=== PATIENT | male | born 1985 | race Caucasian/White ===

== ENCOUNTER → 2022-08-26 14:47 | Outpatient (BNVA) | payer BC, SELFPAY | PROVIDERS: PCP Internal Medicine; Visit Provider Nurse Practitioner Family ==

== ENCOUNTER → 2022-09-23 13:58 | Outpatient (REF) | payer BC, SELFPAY | LOC: HO.SL 13:58 | PROVIDERS: PCP Internal Medicine; Visit Provider Nurse Practitioner Family | DX: G47.33 Obstructive sleep apnea (adult) (pediatric) (principal); R40.0 Somnolence; R06.83 Snoring | CPT/HCPCS: 95806; 95811 ==

== ENCOUNTER → 2022-10-13 19:30 | Outpatient (REF) | payer BC, SELFPAY | LOC: HO.SL 19:30 | PROVIDERS: PCP Internal Medicine; Visit Provider Nurse Practitioner Family | DX: Z13.89 Encounter for screening for other disorder (principal) ==

== ENCOUNTER → 2022-10-13 21:18 | Outpatient (BNV) | payer BC, SELFPAY | PROVIDERS: PCP Internal Medicine; Visit Provider Psychiatry & Neurology Neurology | DX: G47.33 Obstructive sleep apnea (adult) (pediatric) (principal) | CPT/HCPCS: 95811 ==

== ENCOUNTER 2022-11-04 14:21 | Outpatient (AMB) | payer BC, SELFPAY ==
[2022-11-04 14:23] VITALS: BP 102/86; PULSE 109; O2SAT 98; BMI 38.6
--- NOTE | 2022-11-04 14:23 | MHC.OFFVIS ---
Intake Vital Signs 11/04/22 14:23 Height 5 ft 11 in Weight 276 lb 8 oz BMI 38.6 BP 102/86 Blood Pressure Location Lt brachial Position Sitting Pulse 109 H Pulse Source Pulse Oximeter Pulse Oximetry (%) 98 Oxygen Delivery Method Room Air Intake Visit Reasons: 2m follow up Sleep Apnea - Confirmed Intake Note: Pt presents as a 2 month f/u for sleep apnea. Photographer Motion Picture Required: No Allergies No Known Allergies Allergy (Verified 11/04/22 14:26) HPI HPI Comments History of Present Illness Details 37 y/o male patient presents for follow up of sleep study. The home sleep study result was significant for severe degree of sleep apnea. The AHI was 85/hr and oxygen shannan was 56%. Pt underwent urgent titration study, but it was unsuccessful. He was unable to tolerate CPAP or BiPAP due to nasal congestion and anxiety. APAP [id number] ordered, and he will belt picker CPAP next Wednesday. Pt states that his nasal congestion has been a little better, and also full face mask made him anxious. He start using medline pillow, claritin and nasal spray, and they help him sleep better now. [facility] Surgical History H/O wisdom tooth extraction Family History Maternal Grandfather Liver disease Social History (Updated 11/04/22 @ 14:27 by Ann Marie Garcia CMA) Alcohol intake: current Alcohol intake frequency: a few times a month Patient Tobacco Use Status: Never used Tobacco Review of Systems Const All systems reviewed & are unremarkable except as noted in HPI and below ENT Reports Normal hearing present Neuro Reports Normal hearing present Physical Exam Vital Signs: Last Vital Signs Pulse 109 H 11/04/22 14:23 BP 102/86 11/04/22 14:23 Pulse Ox 98 11/04/22 14:23 Oxygen Delivery Method Room Air 11/04/22 14:23 BMI result Body Mass Index 38.6 Const General: cooperative Nutritional Appearance: obese Orientation/consciousness: patient oriented x3 Neck Neck: Yes full ROM and Yes supple Resp Effort & Inspection: normal respiratory effort and able to speak in complete sentences Neuro General: patient oriented x3, gait normal and moves all extremities Cranial nerves: Yes Bilaterally intact EOM present, Yes Normal facial strength present, Yes Midline tongue present, Yes Symmetric palate elevation present, Yes Normal hearing present, Yes Ability to bilaterally rotate head present and Yes Ability to bilaterally elevate shoulders present Cognition (Neuro): normal cognition Gait exam (Neuro): Normal gait present Motor exam (neuro): 5/5 motor strength present throughout, Pronator motor function not present and no tremor noted Psych Appearance: grossly normal Mental Status: mental status grossly normal Speech and movement: Normal speech and movement present Affect: normal affect Attitude: cooperative Assessment & Plan Assessment & Plan (1) HAL (obstructive sleep apnea): Comment: Severe degree of sleep apnea. The AHI was 85/hr and oxygen shannan was 56% Code(s): G47.33 - Obstructive sleep apnea (adult) (pediatric) Plan Advised patient to start APAP [id number]. Advised patient to try different mask to fit well to him. Suggested to try Neti Pot to clear nasal congestion, and continue to use claritin and nasal spray. Stressed compliance, use CPAP nightly and more than 4 hours. Wt reduction advised. Coding Level of Care Code Est Pt Level 3 (94044) Diagnoses HAL (obstructive sleep apnea) G47.33
== END 2022-11-04 14:43 | disposition home or self-care (01) ==
PROVIDERS: Visit Provider Nurse Practitioner Family
DX: G47.33 Obstructive sleep apnea (adult) (pediatric) (principal)
CPT/HCPCS: 99213

== ENCOUNTER → 2022-11-04 14:21 | Outpatient (BNVA) | payer BC, SELFPAY | PROVIDERS: Visit Provider Nurse Practitioner Family | DX: R06.83 Snoring (principal); R40.0 Somnolence ==

== ENCOUNTER 2023-01-27 13:42 | Outpatient (AMB) | payer BC, SELFPAY ==
--- NOTE | 2023-01-27 14:07 | A.OFFVIS_ITS ---
Intake Vital Signs 01/27/23 14:08 Height 5 ft 11 in Weight 261 lb 2 oz BMI 36.4 BP 112/82 Blood Pressure Location Rt brachial Position Sitting Intake Visit Reasons: 3m follow up Sleep Apnea-Confirmed Intake Note: Patient presents for 3 month follow up sleep apnea. Patient states no issues today. Allergies No Known Allergies Allergy (Verified 01/27/23 14:11) HPI HPI Comments History of Present Illness Details 37 y/o male patient presents for follow up of HAL on CPAP. The home sleep study result was significant for severe degree of sleep apnea. The AHI was 85/hr and oxygen shannan was 56%. Pt underwent urgent titration study, but it was unsuccessful. He was unable to tolerate CPAP or BiPAP due to nasal congestion and anxiety. Pt started APAP [id number]. The CPAP compliance and therapy response (12/23/22-01/21/23) reviewed. The usage days 100% and the average usage hours 5 hours 30 min. The max pressure was 13.1 and the AHI was 7.5/hr. The apnea index was central 5 and obstructive 1.3/hr. He feels CPAP using helps him less tired, and is able to cut down caffeine in take. But he had worsening nasal congestion. [facility] Surgical History H/O wisdom tooth extraction Family History Maternal Grandfather Liver disease Alcohol intake: current Alcohol intake frequency: a few times a month Patient Tobacco Use Status: Never used Tobacco Review of Systems Const All systems reviewed & are unremarkable except as noted in HPI and below ENT Reports Normal hearing present Neuro Reports Normal hearing present Physical Exam Vital Signs: Last Vital Signs BP 112/82 01/27/23 14:08 BMI result Body Mass Index 36.4 Const General: cooperative Nutritional Appearance: obese Orientation/consciousness: patient oriented x3 Neck Neck: Yes full ROM and Yes supple Resp Effort & Inspection: normal respiratory effort and able to speak in complete sentences Neuro General: patient oriented x3, gait normal and moves all extremities Cranial nerves: Yes Bilaterally intact EOM present, Yes Normal facial strength present, Yes Midline tongue present, Yes Symmetric palate elevation present, Yes Normal hearing present, Yes Ability to bilaterally rotate head present and Yes Ability to bilaterally elevate shoulders present Cognition (Neuro): normal cognition Gait exam (Neuro): Normal gait present Motor exam (neuro): 5/5 motor strength present throughout, Pronator motor function not present and no tremor noted Psych Appearance: grossly normal Mental Status: mental status grossly normal Speech and movement: Normal speech and movement present Affect: normal affect Attitude: cooperative Assessment & Plan Assessment & Plan (1) HAL (obstructive sleep apnea): Comment: Severe degree of sleep apnea. The AHI was 85/hr and oxygen shannan was 56% Code(s): G47.33 - Obstructive sleep apnea (adult) (pediatric) Plan Will change the CPAP pressure to [id number]. Stressed complaince, use CPAP nightly and more than 4 hrs. Clean mask and tubing regularly. Wt reduction advised. Coding Level of Care Code Est Pt Level 3 (22023) Diagnoses HAL (obstructive sleep apnea) G47.33
[2023-01-27 14:08] VITALS: BP 112/82; BMI 36.4
== END 2023-01-27 14:32 | disposition home or self-care (01) ==
PROVIDERS: PCP Internal Medicine; Visit Provider Nurse Practitioner Family
DX: G47.33 Obstructive sleep apnea (adult) (pediatric) (principal)
CPT/HCPCS: 99213

== ENCOUNTER → 2023-01-27 13:42 | Outpatient (BNVA) | payer BC, SELFPAY | PROVIDERS: PCP Internal Medicine; Visit Provider Nurse Practitioner Family | DX: R06.83 Snoring (principal); R40.0 Somnolence ==

== ENCOUNTER 2023-06-30 13:40 | Outpatient (AMB) | payer BC, SELFPAY ==
--- NOTE | 2023-06-30 13:43 | A.OFFVIS_ITS ---
Intake Vital Signs 06/30/23 13:51 Height 5 ft 11 in Weight 286 lb 6 oz BMI 39.9 BP 122/70 Blood Pressure Location Lt brachial Position Sitting Pulse 88 Pulse Source Pulse Oximeter Pulse Oximetry (%) 97 Oxygen Delivery Method Room Air Intake Visit Reasons: 5 mo f/u HAL - CONF Intake Note: Patient presents for 5 month F/U. Allergies No Known Allergies Allergy (Verified 06/30/23 13:47) HPI HPI Comments History of Present Illness Details 38 y/o male patient presents for follow up of HAL on CPAP. The CPAP compliance and therapy response (03/30/23-06/27/23) reviewed. The usage days 100% and the average usage hours 4 hours 16 min. The APAP pressure was changed to [id number]. The max pressure was 12.5 and the AHI was 7/hr. The apnea index was central 3.8 and obstructive 0.8/hr. The home sleep study result was significant for severe degree of sleep apnea. The AHI was 85/hr and oxygen shannan was 56%. Pt underwent urgent titration study, but it was unsuccessful. He was unable to tolerate CPAP or BiPAP due to nasal congestion and anxiety. His headgear is too tight and it bothersome. He called [facility] but he was told that the headgear size is standard. Pt reports he had some insomnia during April. He also gained about 25 lb over the last 6 months. He stopped doing exercise during winter. He feels CPAP using helps him less tired, and is able to cut down caffeine intake. [facility] Surgical History H/O wisdom tooth extraction Family History Maternal Grandfather Liver disease Social History Alcohol intake: current Alcohol intake frequency: a few times a month Patient Tobacco Use Status: Never used Tobacco Review of Systems Const All systems reviewed & are unremarkable except as noted in HPI and below ENT Reports Normal hearing present Neuro Reports Normal hearing present Physical Exam Vital Signs: Last Vital Signs Pulse 88 06/30/23 13:51 BP 122/70 06/30/23 13:51 Pulse Ox 97 06/30/23 13:51 Oxygen Delivery Method Room Air 06/30/23 13:51 BMI result Body Mass Index 39.9 Const General: cooperative Nutritional Appearance: obese Orientation/consciousness: patient oriented x3 Neck Neck: Yes full ROM and Yes supple Resp Effort & Inspection: normal respiratory effort and able to speak in complete sentences Neuro General: patient oriented x3, gait normal and moves all extremities Cranial nerves: Yes Bilaterally intact EOM present, Yes Normal facial strength present, Yes Midline tongue present, Yes Symmetric palate elevation present, Yes Normal hearing present, Yes Ability to bilaterally rotate head present and Yes Ability to bilaterally elevate shoulders present Cognition (Neuro): normal cognition Gait exam (Neuro): Normal gait present Motor exam (neuro): 5/5 motor strength present throughout, Pronator motor function not present and no tremor noted Psych Appearance: grossly normal Mental Status: mental status grossly normal Speech and movement: Normal speech and movement present Affect: normal affect Attitude: cooperative Assessment & Plan Assessment & Plan (1) HAL (obstructive sleep apnea): Comment: Severe degree of sleep apnea. The AHI was 85/hr and oxygen shannan was 56% Code(s): G47.33 - Obstructive sleep apnea (adult) (pediatric) Plan Continue to use APAP at [id number]. Stressed compliance, use CPAP nightly and more than 4 hrs. Clean mask and tubing regularly. Wt reduction advised. Coding Level of Care Code Est Pt Level 3 (76726) Diagnoses HAL (obstructive sleep apnea) G47.33
[2023-06-30 13:51] VITALS: BP 122/70; PULSE 88; O2SAT 97; BMI 39.9
== END 2023-06-30 14:07 | disposition home or self-care (01) ==
PROVIDERS: PCP Internal Medicine; Visit Provider Nurse Practitioner Family
DX: G47.33 Obstructive sleep apnea (adult) (pediatric) (principal)
CPT/HCPCS: 99213

== ENCOUNTER → 2023-06-30 13:40 | Outpatient (BNVA) | payer BC, SELFPAY | PROVIDERS: PCP Internal Medicine; Visit Provider Nurse Practitioner Family ==

== ENCOUNTER 2024-06-27 13:42 | Outpatient (AMB) | payer BC, SELFPAY ==
--- NOTE | 2024-06-27 13:53 | MHC.OFFVIS ---
Vital Signs 06/27/24 13:54 Height 5 ft 11 in Weight 287 lb BMI 40.0 BP 110/76 Blood Pressure Location Lt brachial Position Sitting Pulse 85 Pulse Source Pulse Oximeter Pulse Oximetry (%) 97 Oxygen Delivery Method Room Air Intake Visit Reasons: 1 yr f/u Intake Note: Patient presents follow up HAL. Compliance in chart Certified Athletic Trainer Required: No Accompanied by: Self / Same As Patient Allergies No Known Allergies Allergy (Verified 06/30/23 13:47) Medication List - Last Reconciled 07/09/24 by GOYO Le azelastine 1 spray intranasal BID fluticasone propionate 50 mcg/actuation 1 spray intranasal DAILY lisinopril 5 mg PO DAILY loratadine (Claritin) 10 mg PO DAILY metformin 500 mg PO BID simvastatin 20 mg PO DAILY HPI Comments Details: Chief Complaint Persistent nasal congestion and review of sleep apnea management Interval History - The patient is a 39-year-old male presenting with follow-up for sleep apnea and management of allergic rhinitis. - Sleep Apnea: Continues to use CPAP regularly, cleaning it daily. No notable changes reported. - Allergic Rhinitis: History of consistent use of azelastine; discontinued other allergy medications post-COVID in April due to mild symptoms. Congestion persists, primarily managed with azelastine. Morning congestion noted. History of Present Illness The patient is a 39-year-old male presenting with follow-up for sleep apnea and management of allergic rhinitis. There is a consistent history of allergic rhinitis managed with azelastine and occasional saline irrigation. He experienced COVID-19 in April, post which other allergy medications were paused. Morning congestion is predominantly managed with azelastine, offering symptom relief. CPAP usage for sleep apnea is regular, with a proper cleaning routine. Insurance challenges regarding CPAP supplies reimbursement have been noted. Allergy testing confirmed significant reactivity. CPAP review: Does patient have sufficient PAP supplies? Yes Does patient clean PAP supplies on a regular basis? Yes Does the patient use distilled water in their PAP machine water reservoir? Yes PAP compliance report reviewed. Compliance report date range: 12/22/2023 through 06/19/2024 Overall usage: 100 percent Usage greater than 4 hours: 100 percent PAP setting: APAP 8-13 cm H2O with EPR s 3 Maximum therapy pressure: 12.8 cm H2O Average usage on days used: 7 hour and 34 minutes Average mask leakage: 5 LPM Residual AHI: 3 per hour Employment - Uses FSA benefits through employment with the [employer], facing procedural challenges with insurance reimbursements for CPAP supplies PFSH Surgical History H/O wisdom tooth extraction Family History Maternal Grandfather Liver disease Social History Alcohol intake: current Alcohol intake frequency: a few times a month Patient Tobacco Use Status: Never used Tobacco Physical Exam Vital Signs: Last Vital Signs Pulse 85 06/27/24 13:54 BP 110/76 06/27/24 13:54 Pulse Ox 97 06/27/24 13:54 Oxygen Delivery Method Room Air 06/27/24 13:54 BMI result Body Mass Index 40.0 Const General: no acute distress Orientation/consciousness: patient oriented x3 Resp Effort & Inspection: normal respiratory effort and able to speak in complete sentences Neuro General: patient oriented x3 Psych Mental Status: mental status grossly normal Speech and movement: Clear speech present Attitude: cooperative Assessment & Plan Assessment & Plan (1) HAL (obstructive sleep apnea): Comment: Severe degree of sleep apnea. The AHI was 85/hr and oxygen shannan was 56% Code(s): G47.33 - Obstructive sleep apnea (adult) (pediatric) Category: Medical (2) Allergic rhinitis: Code(s): J30.9 - Allergic rhinitis, unspecified Category: Medical Plan Discussion Notes We discussed the patient's ongoing management for allergic rhinitis and sleep apnea. I advised on optimizing azelastine administration with technique suggestions to reduce postnasal drip. CPAP usage was reviewed, alongside cleaning protocols. We addressed insurance difficulties for obtaining CPAP supplies, noting I can provide additional documentation if required. The patient confirmed symptom management is stable, acknowledging adequate daytime energy and lack of new symptoms post-COVID. Allergy test results had illustrated significant sensitivities, reinforcing the rationale for current therapeutic approaches. Plan Continue azelastine for allergic rhinitis with proper technique. Supplement with saline nasal rinses prn. Maintain CPAP use and cleaning regimen for sleep apnea. Offer documentation support for insurance issues with CPAP supplies. Monitor symptoms for therapy adjustments if needed. - Continue to use APAP 8-13 cm H2O with EPR s 3 nightly with a goal of greater than 4 hours nightly, as patient is experiencing good clinical effect from use. - Clean and change PAP supplies routinely, including filters, masks, tubing, and water reservoir. - Use distilled water in PAP water resorvoir. Patient was informed and verbally consented to the use of an ambient scribe for clinic note documentation during this visit. Coding Level of Care Code Est Pt Level 4 (23512) Diagnoses HAL (obstructive sleep apnea) G47.33 Allergic rhinitis J30.9
[2024-06-27 13:54] VITALS: BP 110/76; PULSE 85; O2SAT 97; BMI 40.0
== END 2024-06-27 14:51 | disposition home or self-care (01) ==
LOC: HO.HSMS 13:42
PROVIDERS: PCP Internal Medicine; Visit Provider Nurse Practitioner Family
DX: G47.33 Obstructive sleep apnea (adult) (pediatric) (principal); J30.9 Allergic rhinitis, unspecified
CPT/HCPCS: 99214

== ENCOUNTER → 2024-06-27 13:42 | Outpatient (BNVA) | payer BC, SELFPAY | PROVIDERS: PCP Internal Medicine; Visit Provider Nurse Practitioner Family ==